=== PATIENT | female | born 2000 | race American Indian/Alaskan Native ===

== ENCOUNTER 2020-12-04 11:26 | Emergency (ER) | payer OTHER ==
[2020-12-04 11:50] VITALS: BP 130/80
[2020-12-04] MEDS ORDERED: TETANUS,DIPH,PERTUSS(ACELL) VACCINE 0.5 ML SYRINGE IM ONE (12:17)
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
== END 2020-12-04 12:49 | disposition left against medical advice (07) ==
LOC: EDBD → ED 11:26
DX: S61.422A Laceration with foreign body of left hand, initial encounter (principal); T14.8XXA Other injury of unspecified body region, initial encounter; T76.11XA Adult physical abuse, suspected, initial encounter; M41.9 Scoliosis, unspecified; Z98.890 Other specified postprocedural states; Y04.8XXA Assault by other bodily force, initial encounter; Y93.89 Activity, other specified; Y92.89 Other specified places as the place of occurrence of the external cause; Y99.8 Other external cause status
CPT/HCPCS: 90471; 90715; 99283